=== PATIENT | female | born 1965 | race Caucasian/White ===

== ENCOUNTER 2017-10-13 18:40 | Emergency (ER) | payer OTHER ==
[2017-10-13 18:53] VITALS: BP 137/90; PULSE 83; TEMP 98.6; BMI 28.3
--- NOTE | 2017-10-13 19:06 | PDOC ---
History of Present Illness - General History Source: Patient Exam Limitations: No Limitations - History of Present Illness Initial Comments: 10/13/17 19:54 A portion of this note was documented by scribe services under my direction. I have reviewed the details of the note, within reason, and agree with the documentation. The case summary and management plan written by me. Medical decision making: This is a 52-year-old female who comes in with 2 days of substernal chest pain and some anterior left neck pain. Patient has cardiac risk factors of borderline high cholesterol and hypertension. Patient is on medication for hypertension but not high cholesterol. Patient is complaining of generalized not feeling well as well. Will obtain a workup including CBC, comp, cardiac enzymes, chest x-ray, EKG We'll give patient some Pepcid and reassess and review results of workup. Chest x-ray no acute pathology as reviewed by me 20:30 Reevaluation patient feels better with Pepcid. Patient's blood work is unremarkable with the exception of a mild elevation in her AST and alkaline phosphatase. Patient has no tenderness in her abdomen. Patient given copies of her results and discharged home. <Breanna Kim I - Last Filed: 10/13/17 20:32> - General History Source: Patient Exam Limitations: No Limitations - History of Present Illness Initial Comments: The patient is a 52 year old female who presents to the emergency department complaining of left sided neck discomfort and midsternal chest pain. The patient reports intermittent episodes of midsternal chest pain occurring for 2 days. She describes her chest pain as localized ranked 5/10 in severity, with no modifying factors. She states she "has not felt the chest pain for awhile" and "felt like passing out" yesterday. The patient describes left sided neck discomfort as a constant pressure. The patient reports she had an ear infection and sore throat in June, and was treated with IV antibiotics. Of note, she visited an urgent care today for irritated eyes and nose and was prescribed nose spray. The patient denies chest pain, shortness of breath, headache, and dizziness. Denies fevers, chills, nausea, vomiting, diarrhea, and constipation. Denies dysuria, frequency, urgency, and hematuria. PAST MEDICAL HISTORY: Hypertension, Hayfever. PAST SURGICAL HISTORY: Cholecystectomy. FAMILY HISTORY: no pertinent history SOCIAL HISTORY: Pt lives with family and is employed. MEDICATIONS: reviewed ALLERGIES: As per nursing notes ROS General: No fevers or chills, no weakness, no weight loss HEENT: (+) Left sided neck discomfort. No change in vision. No sore throat,. No ear pain Cardiovascular: (+)Midsternal chest pain. No shortness of breath Respiratory: No cough, or wheezing. Gastrointestinal: no nausea, vomiting, diarrhea or constipation, No rectal bleeding Genitourinary: No dysuria, hematuria, or frequency Musculoskeletal: No joint or muscle pain or swelling Neurologic: No headache, vertigo, dizziness or loss of consciousness Psychiatric: nor depression Skin: No rashes or easy bruising Endocrine: no increased thirst or abnormal weight change Allergic: no skin or latex allergy All other systems reviewed and normal Adult Exam: General: Well-nourished well-developed individual, no acute distress HEENT: Throat: Normal, tonsils normal, no erythema or exudate Neck: Supple, no meningeal signs, no lymphadenopathy Eyes:Pupils equal reactive and round, extraocular motion intact Chest: Nontender to palpation Cardiac: S1-S2 normal, regular rate and rhythm, no murmurs rubs or gallops Respiratory: Lungs clear to auscultation bilateral Abdomen: Soft, nondistended, normal bowel sounds, nontender to palpation diffusely Extremities: Warm, dry, no cyanosis, clubbing, or edema Skin: No rashes Neuro: Alert and oriented x3, nonfocal exam, grossly intact, normal gait Psych: Normal mood and affect <Keshav Hernandez - Last Filed: 10/13/17 20:36> - General Chief Complaint: Chest Pain Stated Complaint: NOT FEELING WELL,neck pain,chest burning Time Seen by Provider: 10/13/17 19:04 Past History - Past Medical History COPD: No HTN: Yes Other medical history: Hay fever - Surgical History Cholecystectomy: Yes - Suicide/Smoking/Psychosocial Hx Smoking History: Never smoked Hx Alcohol Use: Yes (socially) Drug/Substance Use Hx: No Substance Use Type: None <Breanna Kim I - Last Filed: 10/13/17 20:32> <Keshav Hernandez - Last Filed: 10/13/17 20:36> - Past Medical History Allergies/Adverse Reactions: Allergies Allergy/AdvReac Type Severity Reaction Status Date / Time No Known Allergies Allergy Verified 10/13/17 18:46 Home Medications: Ambulatory Orders Hydrochlorothiazide [Hctz -] 0 mg PO DAILY 10/13/17 Metoprolol Succinate [Toprol Xl] 0 mg PO DAILY 10/13/17 *Physical Exam - Vital Signs Last Vital Signs Temp Pulse Resp BP Pulse Ox 98.6 F 83 18 137/90 99 10/13/17 18:49 10/13/17 18:49 10/13/17 18:49 10/13/17 18:49 10/13/17 18:49 <Breanna Kim I - Last Filed: 10/13/17 20:32> - Vital Signs Last Vital Signs Temp Pulse Resp BP Pulse Ox 98.6 F 83 18 137/90 99 10/13/17 18:49 10/13/17 18:49 10/13/17 18:49 10/13/17 18:49 10/13/17 18:49 <Keshav Hernandez - Last Filed: 10/13/17 20:36> Heart Score/ECG Review - History History: Slightly suspicious - Electrocardiogram EKG: Normal - Age Age: 45-65 - Risk Factors Risk Factors Heart Score: Yes Hx Hypercholesterolemia, Yes Hx Hypertension Based on the list above the patient has:: 1-2 risk factors - Troponin Troponin: </= normal limit - Score Heart Score - Total: 2 <Breanna Kim I - Last Filed: 10/13/17 20:32> ED Treatment Course - LABORATORY CBC & Chemistry Diagram: 10/13/17 19:15 10/13/17 19:15 <Breanna Kim I - Last Filed: 10/13/17 20:32> - LABORATORY CBC & Chemistry Diagram: 10/13/17 19:15 10/13/17 19:15 - ADDITIONAL ORDERS Additional order review: Laboratory Results 10/13/17 10/13/17 10/13/17 19:15 19:15 19:15 Sodium 137 Potassium 3.7 Chloride 100 Carbon Dioxide 27 Anion Gap 10 BUN 13 Creatinine 0.8 Creat Clearance w eGFR > 60 Random Glucose 87 Calcium 9.5 Total Bilirubin 0.8 AST 33 ALT 45 H Alkaline Phosphatase 101 H Creatine Kinase 151 Creatine Kinase Index 0.6 CK-MB (CK-2) 1.0 Troponin I < 0.03 Total Protein 8.1 Albumin 4.0 10/13/17 19:15 RBC 4.47 MCV 84.1 MCHC 32.7 RDW 14.1 MPV 7.8 Neutrophils % 58.2 Lymphocytes % 27.0 Monocytes % 9.1 Eosinophils % 2.9 Basophils % 2.8 H <Keshav Hernandez - Last Filed: 10/13/17 20:36> *DC/Admit/Observation/Transfer - Discharge Dispostion Decision to Admit order: No <Breanna Kim I - Last Filed: 10/13/17 20:32> - Attestations Scribe Attestion: Documentation prepared by Keshav Hernandez, acting as medical transcription radiology for Breanna Kim MD. <Keshav Hernandez - Last Filed: 10/13/17 20:36> Diagnosis at time of Disposition: Chest pain, atypical - Discharge Dispostion Disposition: HOME Condition at time of disposition: Stable - Patient Instructions Printed Discharge Instructions: DI for Atypical Chest Pain Additional Instructions: You can take Tylenol as needed for the pain or discomfort. Addition to that you can also take Pepcid or Zantac, it is [id number]. A couple of your liver enzyme tests were mildly elevated is important that you follow-up with your doctor and have them repeated in a couple weeks to make sure they are normal Return to the emergency department immediately with ANY new, persistent or worsening symptoms. Continue any medications as previously prescribed by your physician. You should follow up with your primary doctor as soon as possible regarding today's emergency department visit. . Please make sure your doctor reviews the results of your emergency evaluation. Thank you for coming to the Emergency Department today for your care. It was a pleasure to see you today. Please note that your evaluation is INCOMPLETE until you follow-up with your doctor.
[2017-10-13 19:27] LABS: BASO % 2.8 % (0-2.0); EOS % 2.9 % (0-4.5); HEMATOCRIT 37.6 % (32.4-45.2); HEMOGLOBIN 12.3 GM/dl (10.7-15.3); MCH 27.5 pg (25.7-33.7); MCHC 32.7 g/dl (32.0-36.0); MEAN CELL VOLUME 84.1 fl (80-96); MEAN PLT VOLUME 7.8 fl (7.5-11.1); MONO % 9.1 % (3.8-10.2); NEUT % 58.2 % (42.8-82.8); PLATELET COUNT 433 K/MM3 (134-434); RBC 4.47 M/mm3 (3.60-5.2); RDW 14.1 % (11.6-15.6); WHITE BLOOD COUNT 8.2 K/mm3 (4.0-10.8)
[2017-10-13 19:44] LABS: ALK PHOS 101 U/L (32-92); ANION GAP 10 (8-16); BILIRUBIN,TOTAL 0.8 mg/dl (0.2-1.0); BLOOD UREA NITROGEN 13 mg/dl (7-18); CALCIUM 9.5 mg/dl (8.4-10.2); CHLORIDE 100 mmol/L (98-107); CO2 27 mmol/L (22-28); CREATININE 0.8 mg/dl (0.6-1.3); GLUCOSE,RANDOM 87 mg/dl (74-106); POTASSIUM 3.7 mmol/L (3.5-5.1); SGOT/AST 33 U/L (10-42); SGPT/ALT 45 U/L (10-40); SODIUM 137 mmol/L (136-145); TOT PROT 8.1 g/dl (6.4-8.3)
[2017-10-13] MEDS ORDERED: FAMOTIDINE 20 MG/50 ML IVPB 20 MG/50 ML MG IVPB ONE (19:46)
[2017-10-13] MEDS ORDERED: FAMOTIDINE IV 20 MG/12 ML VIAL IVPUSH ONE (22:00)
--- NOTE | 2017-10-14 11:21 | EKG ---
Test Reason : Blood Pressure : / mmHG Vent. Rate : 087 BPM Atrial Rate : 087 BPM P-R Int : 146 ms QRS Dur : 086 ms QT Int : 388 ms P-R-T Axes : 054 026 022 degrees QTc Int : 466 ms NORMAL SINUS RHYTHM POSSIBLE LEFT ATRIAL ENLARGEMENT NO PREVIOUS ECGS AVAILABLE Confirmed by IRENE MUNOZ, [place] ([id number]) on 10/14/2017 11:21:40 AM Referred By: DR GA Confirmed By:OR[place]O BONILLA MD
== END 2017-10-13 20:42 | disposition home or self-care (01) ==
LOC: FER 18:40
PROC: 3E033GC Introduction of Other Therapeutic Substance into Peripheral Vein, Percutaneous Approach (ICD-10-PCS; principal; 2017-10-13)
DX: R07.89 Other chest pain (principal); E78.00 Pure hypercholesterolemia, unspecified; I10 Essential (primary) hypertension
CPT/HCPCS: 36415; 71045-TC-FY; 80053; 82550; 82553; 84484; 85025; 93005; 99282-25